=== PATIENT | female | born 1990 | race Caucasian/White ===

== ENCOUNTER 2017-10-25 23:36 | Emergency (ER) | payer MEDICAID, OTHER ==
[~2017-10-25] VITALS: Ht 172.7 cm; Wt 85.0 kg
[2017-10-26] MEDS ORDERED: IBUPROFEN 600MG TABLET PO ONE (02:30)
[2017-10-26 04:45] VITALS: BP 119/61
== END 2017-10-26 05:09 | disposition home or self-care (01) ==
LOC: ER 23:36
DX: J32.9 Chronic sinusitis, unspecified (principal); I10 Essential (primary) hypertension; F41.9 Anxiety disorder, unspecified; F12.10 Cannabis abuse, uncomplicated
CPT/HCPCS: 71045; 81025; 99283